=== PATIENT | female | born 1960 | race Caucasian/White ===

== ENCOUNTER 2019-12-20 11:55 | Outpatient (CLI) | payer OTHER, SELFPAY ==
--- NOTE | ~2019-12-20 | XR_ITS ---
EXAMINATION: XR chest 2V EXAM DATE: 12/20/2019 12:31 INDICATION: Cough. TECHNIQUE: Frontal and lateral projections of the chest obtained and reviewed. There is no prior janet dy for comparison. FINDINGS: The lungs are clear. There are no pleural effusions. The cardiomediastinal silhouette is within normal limits. There is no pneumothorax suspected. The bones and soft tissues are unremarkab le. IMPRESSION: Unremarkable chest x-ray exam. Reviewed, dictated and finalized at location A. BLISHMENT GUIDE
--- NOTE | ~2019-12-20 | XR_ITS ---
XR hip BI 2V w AP pelvis DATE: 12/20/2019 12:31 INDICATION: Hip pain TECHNIQUE: AP pelvis. Bilateral AP and lateral views. COMPARISON: None FINDINGS: There is moderately severe right hip osteoarthritis. No fracture or dislocation, avascular necrosis or bone destruction. The sacroiliac joints are intact. IMPRESSION: Right hip osteoarthritis Reviewed, dictated and finalized at location B. UNTANT MANAGER IMPRESSION: Right hip osteoarthritis
== END 2019-12-20 11:56 | disposition home or self-care (01) ==
PROVIDERS: PCP Family Medicine; Visit Provider Family Medicine
DX: R05 Cough (principal); M16.11 Unilateral primary osteoarthritis, right hip
CPT/HCPCS: 71046; 73521

== ENCOUNTER 2020-03-26 07:33 | Outpatient (CLI) | payer OTHER, SELFPAY ==
--- NOTE | 2020-03-26 | ECG_ITS ---
Measurements Intervals [place] Rate: 84 P: 65 FL: 158 QRS: 40 QRSD: 97 T: 58 QT: 388 QTc: 460 Interpretive Statements SINUS RHYTHM ATRIAL PREMATURE COMPLEX POSSIBLE LEFT ATRIAL ENLARGEMENT CANNOT RULE OUT SEPTAL INFARCT, AGE INDETERMINATE BORDERLINE ST ABNORMALITY- ANTEROLAT/INF LEADS BASELINE ARTIFACT- I, II, AVR ABNORMAL ECG Electronically Signed On 03-26-2020 8:31:41 CDT by Skyler Castano D.O.
[2020-03-26 07:55] LABS: Hemoglobin 14.2 g/dL (12.0-15.0)
[2020-03-26 08:04] LABS: Urine Cotinine NEGATIVE
[2020-03-26 08:06] LABS: Albumin Level 4.9 g/dL (3.5-5.1); Estimated Glomerular Filt Rate > 60; Glucose 86 mg/dL (65-105)
== END 2020-03-26 07:34 | disposition home or self-care (01) ==
PROVIDERS: PCP Family Medicine; Visit Provider Orthopaedic Surgery
DX: Z01.812 Encounter for preprocedural laboratory examination (principal); M16.11 Unilateral primary osteoarthritis, right hip; E78.5 Hyperlipidemia, unspecified; Z87.891 Personal history of nicotine dependence; R94.31 Abnormal electrocardiogram [ECG] [EKG]
CPT/HCPCS: 36415; 80307; 82040; 82565; 82947; 85014; 85018; 93005

== ENCOUNTER 2020-04-03 10:00 | Outpatient (CLI) | payer OTHER, SELFPAY ==
[2020-04-03 13:19] LABS: Basophils Absolute Auto 0.1 K/mm3 (0.0-0.1); Basophils Percent Auto 0.8 % (0.2-1.2); Eosinophils Absolute Auto 0.2 K/mm3 (0-0.3); Eosinophils Percent Auto 2.3 % (0-4.4); Hemoglobin 14.3 g/dL (12.0-15.0); Immature Granulocyte Absolute 0.02 K/mm3 (0.00-0.031); Immature Granulocyte Percent A 0.2 % (0-0.5); Lymphocytes Absolute Auto 2.62 K/mm3 (0.9-3.2); Lymphocytes Percent Auto 28.6 % (18.3-44.2); Mean Corpuscular HGB Conc 32.5 g/dl (32-36); Mean Corpuscular Hemoglobin 29.7 pg (26-34); Mean Corpuscular Volume 91.5 fl (80-100); Monocytes Absolute Auto 0.6 K/mm3 (0.1-0.6); Monocytes Percent Auto 6.9 % (2.6-8.5); Neutrophils Absolute Auto 5.6 K/mm3 (1.3-6.7); Neutrophils Percent Auto 61.2 % (45.5-73.1); Platelet Count Result 317 k/mm3 (150-375); Red Blood Count 4.81 M/mm3 (4.2-5.4); Red Cell Distribution Width 14.3 % (11.5-14.5); White Blood Count 9.2 K/mm3 (4.5-10.0)
[2020-04-03 13:27] LABS: Hemoglobin A1C 5.9 % (<5.7)
== END 2020-04-03 10:01 | disposition home or self-care (01) ==
LOC: ANHSURGERY 10:03
PROVIDERS: PCP Family Medicine; Visit Provider Orthopaedic Surgery
DX: Z01.818 Encounter for other preprocedural examination (principal); M16.11 Unilateral primary osteoarthritis, right hip
CPT/HCPCS: 36415; 83036; 85025; 87081

== ENCOUNTER 2020-04-11 10:18 | Outpatient (CLI) | payer OTHER, SELFPAY ==
--- NOTE | 2020-04-11 | EST_ITS ---
Patient Info Name: Mae Bravo Age: 59 years : 1960 Gender: Female Ht: 65 in Wt: 150 lbs BSA: 1.78 m2 Exam Date: 04/11/2020 11:14 AM Exam Location: [facility] Stress Patient Status: Outpatient Admit Date: 04/11/2020 Staff Ordering Physician: Mesha Johnson MD Attending Provider: Mesha Johnson MD Exercise Technologist: Tila Goodwin RDCS Exercise Physician: Skyler Castano DO Exam Type: CA stress kimber w NM Study Info Indications R94.31 - Abnormal electrocardiogram ECG EKG A regadenoson stress test was performed. Summary 1. 1. Negative lexiscan stress for ischemic ST changes by ECG criteria. 2. 2. Baseline hypertension. 3. 3. Nuclear scan to follow and will be reported separately. Please correlate with it. 4. 4. Patient informed of the above results. Protocol: Lexiscan Stress ECG Details Stage: REST Duration (min): 4 min : 9 sec HR (bpm): 78 SBP (mmHg): 145 DBP (mmHg): 89 Stage: REST Duration (min): 11 min : 41 sec HR (bpm): 72 SBP (mmHg): 145 DBP (mmHg): 89 Stage: STAGE 1 Duration (min): 1 min : 0 sec HR (bpm): 100 SBP (mmHg): 139 DBP (mmHg): 98 Stage: RECOVERY Duration (min): 1 min : 0 sec HR (bpm): 98 SBP (mmHg): 143 DBP (mmHg): 94 Stage: RECOVERY Duration (min): 2 min : 0 sec HR (bpm): 92 SBP (mmHg): 143 DBP (mmHg): 94 Stage: RECOVERY Duration (min): 3 min : 0 sec HR (bpm): 94 SBP (mmHg): 146 DBP (mmHg): 76 Stage: RECOVERY Duration (min): 3 min : 4 sec HR (bpm): 93 SBP (mmHg): 146 DBP (mmHg): 76 Rest HR: 72 bpm Peak HR: 102 bpm Rest Sys BP: 145 mmHg Peak Sys BP: 146 mmHg Max Pred HR: 160 bpm % Max Pred HR: 64 % Target HR: 136 bpm Max RPP: 14,892 bpm*mmHg Termination Reason: Completed protocol Cardiac Symptoms: Shortness of breath Total Time: 1 min : 0 sec Rest Sellers BP: 89 mmHg Peak Sellers BP: 76 mmHg Total Dose: 0.4 mg Resting ECG Sinus rhythm with ST depression 1 mm in diffuse leads. Stress ECG No significant ST changes. Arrhythmias None. Report Signatures
--- NOTE | ~2020-04-11 | NM_ITS ---
EXAMINATION: NM kimber stress w perfusion DATE: 04/11/2020 12:26 INDICATION: Abnormal EKG. TECHNIQUE: Rest images were obtained following intravenous administration of 8.8 mCi Tc99m tetrofosmi n (Myoview). The patient was infused intravenously with Lexiscan (Regadenoson). Then, 27.5 mCi Tc99m tetrofosmin (Myoview) was administered intravenously, and stress images were obtained. Data was recon structed into short axis and horizontal and vertical long axis SPECT images. Gated SPECT images were also obtained. COMPARISON: None. FINDINGS: There is no definite reversible or fixed perfusion abnormality to suggest ischemia or infar ction. There is normal left ventricular chamber size, wall motion and ejection fraction. Left ventr icular ejection fraction measures 66%. IMPRESSION: 1. Normal myocardial perfusion at rest and during stress. 2. Left ventricular ejection fraction measuring 66%. Reviewed, dictated and finalized at location A.
== END 2020-04-11 10:19 | disposition home or self-care (01) ==
LOC: ANHCARD 10:24
PROVIDERS: PCP Family Medicine; Visit Provider Family Medicine
DX: R94.31 Abnormal electrocardiogram [ECG] [EKG] (principal); I10 Essential (primary) hypertension
CPT/HCPCS: 78452; 93017; A9502; J2785

== ENCOUNTER 2020-04-22 00:17 | Outpatient (CLI) | payer OTHER, SELFPAY ==
[2020-04-22 18:56] LABS: SARS-CoV-2 RNA PCR Negative
== END 2020-04-22 00:18 | disposition home or self-care (01) ==
LOC: ANHCOVIDDT 00:17
PROVIDERS: PCP Family Medicine; Visit Provider Orthopaedic Surgery
DX: Z01.818 Encounter for other preprocedural examination (principal); Z11.59 Encounter for screening for other viral diseases
CPT/HCPCS: 87635; C9803; U0003

== ENCOUNTER 2020-04-24 01:30 | Day surgery (SDC) | payer OTHER, SELFPAY ==
[2020-04-03 10:15] VITALS: BP 140/84; PULSE 82; RESP 18; TEMP 36.8; O2SAT 97; BMI 26.3
--- NOTE | 2020-04-23 13:14 | WPDANESEPPF ---
Anes - Initial Pre Proc Eval Procedure: Operation Date: 04/24/20 07:30 Proposed Procedures p Right Total Hip Arthroplasty - Justus Byers MD Date/Time: 04/23/20 13:14 Surgeon: Justus Byers MD Pre Op Diagnosis: right hip OA Patient Data Age: 59 Gender: F Height: 1.63 m Weight: 69.6 kg Last Vital Signs Temp 36.8 C 04/03/20 10:15 Pulse 82 04/03/20 10:15 Resp 18 04/03/20 10:15 BP 140/84 04/03/20 10:15 Pulse Ox 97 04/03/20 10:15 Allergies Allergy/AdvReac Type Severity Reaction Status Date / Time No Known Allergies Allergy Verified 04/24/20 06:01 Home Medications Medication Instructions Recorded Confirmed Type estradiol 0.01 % VAGINAL WEEKLY 02/18/20 04/24/20 History meloxicam 7.5 mg tablet 7.5 mg PO DAILY #90 tablet 02/18/20 04/24/20 Rx azithromycin [Azasite] 1 drp OPHTHALMIC (EYE) BID 04/03/20 04/24/20 History carboxymethylcellulose sodium 1 drp OPHTHALMIC (EYE) BID 04/03/20 04/24/20 History [Lubricant Eye Drops] hypochlorous acid-sodium chlor 1 spray TOPICAL BID 04/03/20 04/17/20 History [Avenova] omega 8-lov-ege-fish oil [Fish Oil] 1 cap PO DAILY 04/03/20 04/24/20 History ECG: Date of Service: 03/26/20 Procedure(s): CA 12 lead EKG Accession Number(s): [id number] cc: ~ Measurements Intervals [place] Rate: 84 P: 65 VA: 158 QRS: 40 QRSD: 97 T: 58 QT: 388 QTc: 460 Interpretive Statements SINUS RHYTHM ATRIAL PREMATURE COMPLEX POSSIBLE LEFT ATRIAL ENLARGEMENT CANNOT RULE OUT SEPTAL INFARCT, AGE INDETERMINATE BORDERLINE ST ABNORMALITY- ANTEROLAT/INF LEADS BASELINE ARTIFACT- I, II, AVR ABNORMAL ECG Electronically Signed On 03-26-2020 8:31:41 CDT by Skyler Castano D.O. Dictated By: Skyler Castano DO 03/26/20 0820 Other Studies: Date of Service: 04/11/20 Procedure(s): CA stress kimber w NM Summary 1. 1. Negative lexiscan stress for ischemic ST changes by ECG criteria. 2. 2. Baseline hypertension. IMPRESSION: 1. Normal myocardial perfusion at rest and during stress. 2. Left ventricular ejection fraction measuring 66%. Patient hx anesthesia problems: none Family hx anesthesia problems: none [facility] Past Medical History Medical History (Updated 04/23/20 @ 13:16 by Domo Ott MD) Acute right hip pain Arthritis Former smoker HLD (hyperlipidemia) Overweight (BMI 25.0-29.9) Primary osteoarthritis of right hip Surgical History Surgical History H/O excision of ganglion cyst (~07/2019) History of cataract surgery (~08/2019) History of section (~1979) Social History Social History Smoking packs per day: 0.5 Smoking cigarettes per day: 10.0 Years smoked: 40 Smoking pack-years: 20.00 Smoking status: Current every day smoker Alcohol intake: current Substance use: never 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 Gender identity (if verbalized by the patient): Female Spiritual care concerns: No Agree to blood products: Yes Anes - Eval Final PreProcedure Day of Procedure 04/23/20 13:14 Patient weight: overweight Heart: regular rate and rhythm Lungs: clear to auscultation and normal air movement Airway: Mallampati scale class II Neurological: alert and oriented Last oral intake: >/= 8 hours ASA classification: II Emergent: no Anesthetic plan: proceed Anesthesia type and monitoring: general LMA and ETT Informed Consent: The patient's anesthetic plan and its attendant risks and benefits were discussed with the patient/family/POA. Questions were solicited and answers provided to
[2020-04-24] VITALS (14 sets, daily range): BP systolic 104–145; BP diastolic 58–85; PULSE 79–106; RESP 10–20; TEMP 35.4–37.1; O2SAT 94–100
--- NOTE | ~2020-04-24 | XR_ITS ---
EXAMINATION: XR hip RT min 2V DATE: 04/24/2020 09:58 INDICATION: Postoperative evaluation following right hip hemiarthroplasty. TECHNIQUE: Anteroposterior and lateral views of the right hip were obtained. COMPARISON: Radiograph dated 03/12/2020 FINDINGS: Interval placement of a bipolar type right hip hemiarthroplasty which appears well seated in near nader tomic alignment. No fracture identified. Expected small amount of postoperative soft tissue gas. IMPRESSION: 1. Expected appearance of a bipolar type right hip hemiarthroplasty, negative for postoperative purpo ses. Reviewed, dictated and finalized at location A. IMPRESSION: 1. Expected appearance of a bipolar type right hip hemiarthroplasty, negative f or postoperative purposes.
[2020-04-24] MEDS: LACTATED RINGERS 1,000 ML 30 ML IV CONT ×2 (06:30→09:38)
--- NOTE | 2020-04-24 07:09 | SUR.PREOP ---
Up to bathroom.
--- NOTE | 2020-04-24 07:13 | WPDHPUPDATE1 ---
History and Physical Update Update Date/Time: 04/24/20 07:13 History and Physical has been reviewed, including an updated exam of the patient. There are NO changes in the patient's condition. Risks, benefits, and alternatives have been discussed and questions answered. Patient agrees to proceed with procedure.
[2020-04-24] MEDS: ceFAZolin 2 GM/D5W 50 ML 2 GM/50 ML BAG IVPB (07:21)
[2020-04-24] MEDS: TRANEXAMIC ACID 1,000MG/ISO100 1,000 MG/100 ML BAG 200 MG IVPB (07:46)
--- NOTE | 2020-04-24 10:06 | SUR.PHASEI ---
0945 xrays right hip done.
--- NOTE | 2020-04-24 10:17 | P.OP_ITS ---
Procedure Note - Detailed Date of procedure: 04/24/20 Pre-op diagnosis: right hip OA Post-op diagnosis: same Procedure performed: Total hip arthroplasty. Implants: The Accolade II hip stem, 127 degree size 2 , was utilized with excellent press-fit. The 46 mm ADM acetabular component was impacted with excellent press-fit stability. The +0 , 28 mm Biolox ceramic femoral head was utilized. Anesthesia: GLMA Surgeon: Justus Byers MD Drains: No Complications: None Condition: stable Findings: OPERATIVE DETAILS: The patient was given preoperative antibiotics. A general anesthetic was administered. The patient was carefully placed in the l ateral decubitus position on the PEG board. The shoulders and hips were carefully positioned for component and leg length positioning reference. The hip was prepped and draped in the usual sterile fashion. A longitudinal incision was created over the posterior aspect of the greater trochanter. Careful dissection was brought down through the deep fascia with electrocautery. A minimally invasive optimized posterior approach to the hip was performed. The short external rotators and capsule were taken down in an L-shaped capsulotomy. The tissue was tagged for later repair using number 2 high strength suture. The femoral neck was measured and taken in situ. The femoral head was removed. The acetabulum was carefully exposed. The inferior capsule was released. The labrum was resected. The acetabulum was sequentially reamed to one over the intended cup size. The cup was impacted into position with excellent press-fit. Typical anatomic landmarks, including the bony contact points as well as the inferior transverse acetabular ligament were used to confirm cup positioning with preoperative templating. Attention was turned to the femur, which was carefully exposed. The hip was reamed and then broached sequentially. Excellent press-fit was obtained with the broach. The hip was trialed. Measurements were utilized, including the lesser trochanter as well as the center of the femoral head and the tip of the trochanter, and excellent assessment of the offset and leg lengths were confirmed. The real component was impacted into position. Trialing confirmed appropriate leg length and offset with soft tissue balancing as well apparent feel of the leg, both at the knee and the heel. Soft tissues were assessed using the the iliotibial band. Reduction of the posterior capsule and external rotators were also used as a secondary assessment. The hip was copiously irrigated with pulsatile lavage antibiotic solution periodically throughout the procedure. The real components were then assembled and reduced. The hip was stable throughout typical maneuvers, including extension, external rotation to 70 degrees, the position of sleep as well as flexion to 90 degrees with internal rotation past 45 degrees. The shake test confirmed stability without impingement. Osteophytes were removed as necessary. The short external rotators and capsule were repaired back to the posterior trochanter through drill holes. The deep fascia was repaired with running number 2 Quill suture, followed by 0 Stratafix suture and 2-0 Stratafix suture in the dermis. Steri- Strips were placed on the skin, followed by a sterile silver occlusive dressing. There were no complications. Meticulous hemostasis was maintained with the AquaMantys device. The patient was brought to the recovery room in stable condition. There were no complications.
--- NOTE | 2020-04-24 11:00 | PC.NURSE ---
This patient, Mae Bravo, was admitted to Medical Room 248-. Patient/family oriented to hospital policies and general routines including ID bracelet, bed and alarms, visiting hours, pain management, procedures, bathroom and other care routines, personal items, smoking policy, room service/diet, and visiting hours. Valuables list has been completed. Information on how to activate the Rapid Response Team has been discussed. Patient/Family are encouraged to report perceived risks to care and to ask questions if they do not understand what they are told or what they should do.
[2020-04-24] MEDS: SODIUM CHLORIDE 0.9% IV 1,000 ML 125 ML IV CONT (11:19)
[2020-04-24 11:21] LABS: Hematocrit 39.4 % (37.0-47.0); Hemoglobin 12.9 g/dL (12.0-15.0)
[2020-04-24] MEDS: DIAZEPAM 5 MG TABLET PO (14:32)
[2020-04-24] MEDS: DOCUSATE SODIUM 100 MG CAPSULE PO (16:26)
[2020-04-24] MEDS: ASPIRIN 81 MG ENTERIC TABLET PO (16:26)
--- NOTE | 2020-04-24 16:38 | PM.PNORT ---
Progress Note: A&P Additional Plan Brief postop check. Doing well. Pain well controlled. Dressing intact. No hematoma or drainage. Calf soft. Wiggles toes. Anterior tibialis strength normal. Alert and oriented x3. No cough or shortness of breath. Physical therapy tomorrow. Possible discharge home. Subjective Subjective Date/Time Seen: 04/24/20 16:38 Objective Data Vital Signs Vital Signs: Vital Signs - 24 hr 04/24/20 06:59 04/24/20 09:38 04/24/20 09:50 Temperature 37.1 C 36.4 C Pulse Rate 83 103 H 95 Respiratory Rate 16 17 12 Blood Pressure 121/69 125/71 141/77 H Pulse Oximetry 99 97 99 04/24/20 10:05 04/24/20 10:20 04/24/20 10:35 Temperature Pulse Rate 96 98 94 Respiratory Rate 12 10 L 11 L Blood Pressure 127/81 137/85 126/71 Pulse Oximetry 100 95 100 04/24/20 10:50 04/24/20 11:05 04/24/20 11:20 Temperature 35.4 C L 35.6 C L Pulse Rate 93 96 96 Respiratory Rate 12 16 16 Blood Pressure 122/81 145/77 H 136/77 Pulse Oximetry 99 98 94 04/24/20 11:50 04/24/20 12:50 Temperature 36.1 C L 35.8 C L Pulse Rate 97 106 H Respiratory Rate 18 16 Blood Pressure 135/79 112/58 L Pulse Oximetry 98 97 Intake/Output Intake/Output: Intake & Output 04/21/20 04/22/20 04/23/20 04/24/20 23:59 23:59 23:59 23:59 Intake Total 1202 Balance 1202 Meds/Results Medications: Active Medications Generic Name Dose Route Start Last Admin Trade Name Freq PRN Reason Stop Dose Admin Aspirin 81 mg 04/24/20 17:00 04/24/20 16:26 Aspirin Ec PO 81 mg BID DORA Administration Diazepam 5 mg 04/24/20 10:54 04/24/20 14:32 Valium Po PO 5 mg Q6H PRN Administration Anxiety/Muscle Spasm Docusate Sodium 100 mg 04/24/20 17:00 04/24/20 16:26 Colace Capsule PO 100 mg BID DORA Administration Estradiol 1 applic 05/01/20 09:00 Estrace Vaginal Cream VAGINAL WEEKLY [facility] Acetaminophen 1,000 mg in 100 mls @ 400 mls/hr 04/24/20 12:00 04/24/20 13:13 Ofirmev 1,000 Mg Ivpb IVPB 04/25/20 12:01 Not Given Q6HR [facility] Cefazolin Sodium 1 gm in 50 mls @ 100 mls/hr 04/24/20 14:00 04/24/20 13:44 Ancef 1 Gm/D5w 50 Ml Pm IVPB 04/25/20 06:29 Infused Q8H [facility] Infusion Magnesium Hydroxide 30 ml 04/24/20 10:54 Milk Of Magnesia PO BID PRN Constipation Meloxicam 7.5 mg 04/25/20 09:00 Mobic PO DAILY [facility] Naloxone HCl 0.1 mg 04/24/20 10:54 Narcan IV PUSH Q2M PRN Opiate Reversal Non-Formulary Medication 1 drop 04/24/20 17:00 Azithromycin [Azasite] EACH EYE 05/24/20 17:01 BID [facility] Non-Formulary Medication 1 drop 04/24/20 17:00 Carboxymethylcellulose Sodium [Lubricant Eye Drops] EACH EYE 05/24/20 17:01 BID [facility] Non-Formulary Medication 1 spray 04/24/20 17:00 Hypochlorous Acid-Sodium Chlor [Avenova] TOPICAL 05/24/20 17:01 BID [facility] Ondansetron HCl 4 mg 04/24/20 10:54 Zofran Inj IV PUSH Q4H PRN Nausea And Vomiting Oxycodone HCl 5 mg 04/24/20 10:54 04/24/20 12:28 Roxicodone Ir Tablet PO 5 mg Q4H PRN Administration Pain Rated 4-6 Radiology Results: ITS Impressions Hip X-Ray 04/24/20 10:21 IMPRESSION: 1. Expected appearance of a bipolar type right hip hemiarthroplasty, negative for postoperative purposes. Labs Labs: Laboratory Results - last 24 hr 04/24/20 04/24/20 06:38 11:13 Hgb 12.9 Hct 39.4 Blood Type O Positive Antibody Screen Negative
[2020-04-25 02:00] VITALS: BP 118/61; PULSE 80; RESP 20; TEMP 36.5; O2SAT 98
[2020-04-25 05:39] LABS: Basophils Percent Auto 0.3 % (0.2-1.2); Eosinophils Absolute Auto 0.1 K/mm3 (0-0.3); Hemoglobin 11.5 g/dL (12.0-15.0); Immature Granulocyte Absolute 0.04 K/mm3 (0.00-0.031); Immature Granulocyte Percent A 0.3 % (0-0.5); Lymphocytes Percent Auto 23.3 % (18.3-44.2); Mean Corpuscular HGB Conc 31.9 g/dl (32-36); Mean Corpuscular Hemoglobin 29.7 pg (26-34); Monocytes Absolute Auto 1.1 K/mm3 (0.1-0.6); Monocytes Percent Auto 8.1 % (2.6-8.5); Neutrophils Absolute Auto 8.6 K/mm3 (1.3-6.7); Platelet Count Result 248 k/mm3 (150-375); Red Blood Count 3.87 M/mm3 (4.2-5.4); Red Cell Distribution Width 13.7 % (11.5-14.5); White Blood Count 12.9 K/mm3 (4.5-10.0)
[2020-04-25 06:00] VITALS: BP 127/66; PULSE 89; RESP 20; TEMP 37.2; O2SAT 99
[2020-04-25 06:14] LABS: Blood Urea Nitrogen 13 mg/dL (7-17); Calcium 8.7 mg/dL (8.4-10.2); Carbon Dioxide 29 mmol/L (22-30); Chloride 105 mmol/L (98-107); Estimated CRCL calculation 86 ml/min; Estimated Glomerular Filt Rate > 60; Glucose 103 mg/dL (65-105); Potassium 3.8 mmol/L (3.4-5.0); Sodium 137 mmol/L (137-145)
--- NOTE | 2020-04-25 08:38 | WPDANESPN ---
Anes - Prog Note Post-Op Date/Time: 04/25/20 08:38 Cardiovascular status: normal Respiratory status: normal Airway patency: baseline Mental status: baseline Post-Op hydration status: normal Vital Signs: Last Vital Signs Temp 98.9 F 04/25/20 06:00 Pulse 89 04/25/20 06:00 Resp 20 04/25/20 06:00 BP 127/66 04/25/20 06:00 Pulse Ox 99 04/25/20 06:00 I/O: Intake & Output 04/24/20 04/25/20 04/25/20 23:59 07:59 15:59 Intake Total 790 950 Output Total 800 1000 Balance -10 -50 Laboratory Tests 04/25/20 05:05 04/25/20 05:05 04/24/20 04/25/20 04/25/20 11:13 05:05 05:05 WBC 12.9 H RBC 3.87 L Hgb 12.9 11.5 L Hct 39.4 36.0 L MCV 93.0 MCH 29.7 MCHC 31.9 L RDW 13.7 Plt Count 248 MPV 11.0 H Immature Gran % (Auto) 0.3 Neut % (Auto) 67.0 Lymph % (Auto) 23.3 [place] % (Auto) 8.1 Eos % (Auto) 1.0 Baso % (Auto) 0.3 Lymph # (Auto) 3.00 [place] # (Auto) 1.1 H Eos # (Auto) 0.1 Baso # (Auto) 0.0 Abs Immat Gran (auto) 0.04 H Absolute Neuts (auto) 8.6 H Absolute Nucleated RBC 0.0 Nucleated RBC % 0.0 Sodium 137 Potassium 3.8 Chloride 105 Carbon Dioxide 29 BUN 13 Creatinine 0.50 L Estim Creat Clear Calc 86 Estimated GFR > 60 Glucose 103 Calcium 8.7 Post-procedural complaints: none Patient Feedback: Patient satisfied with anesthetic care.
[2020-04-25] MEDS: DOCUSATE SODIUM 100 MG CAPSULE PO (09:22)
[2020-04-25] MEDS: MELOXICAM 7.5 MG TABLET PO (09:22)
[2020-04-25] MEDS: ASPIRIN 81 MG ENTERIC TABLET PO (09:22)
[2020-04-25 10:00] VITALS: BP 109/54; PULSE 84; RESP 16; TEMP 36.9; O2SAT 95
== END 2020-04-25 14:20 | disposition home or self-care (01) ==
LOC: ANHSURGERY 05:45 → ANH2MED 10:56
PROVIDERS: PCP Family Medicine; Visit Provider Orthopaedic Surgery
PROC: (CPT 27130; principal; 2020-04-24 07:30)
DX: M16.11 Unilateral primary osteoarthritis, right hip (principal); M25.751 Osteophyte, right hip; E78.5 Hyperlipidemia, unspecified; E66.3 Overweight; Z68.26 Body mass index [BMI] 26.0-26.9, adult; F17.210 Nicotine dependence, cigarettes, uncomplicated; Z79.899 Other long term (current) drug therapy
CPT/HCPCS: 27130; 36415; 73502; 80048; 85014; 85018; 85025; 86850; 86900; 86901; 97110; 97116; 97161; 97165; 97530; A9270; C1776; J0131; J0171; J0690; J1100; J1170; J1885; J2250; J2270; J2405; J2704; J2795; J3010; J7030; J7120

== ENCOUNTER 2023-07-29 16:40 | Emergency (ER) | payer OTHER, SELFPAY ==
--- NOTE | 2023-07-29 16:43 | ED.SKABFB ---
HPI - Skin/Abscess/Foreign Bdy General Chief complaint: Skin/Abscess/Foreign Body Stated complaint: Rash Time Seen by Provider: 07/29/23 16:42 Source: patient Mode of arrival: ambulatory Limitations: no limitations History of Present Illness HPI narrative: Mae is a 62-year-old female patient presenting to the clinic today with complaints of a rash to her face and to the tops of her shoulders. She reports no new detergents, soaps, shampoos, foods, or medications. Reports that she has been getting recurrent poison morro. Was seen last month at her doctor's office for this and he gave her a Depo-Medrol shot at that time. She reports that the rash is itchy in nature. Denies any pain. No fever or chills. Related Data Home Medications Medication Instructions Recorded Confirmed omega 0-waw-exq-fish oil 1,000 mg 1 cap PO DAILY 04/03/20 06/25/23 (120 mg-180 mg) capsule (Fish Oil) meloxicam 15 mg tablet 15 mg PO DAILY 06/01/23 07/29/23 Allergies Allergy/AdvReac Type Severity Reaction Status Date / Time No Known Allergies Allergy Verified 06/24/23 07:58 Review of Systems Review of Systems: Pertinent positives per HPI. Patient denies any fever, chills, headache, visual changes, dizziness, cough, runny nose, sore throat, shortness of breath, chest pain, palpitations, nausea, vomiting, diarrhea, constipation, abdominal pain, or any urinary issues. [facility] Past Medical History Medical History Arthritis Cyst of left breast (~07/2020) Following with Dr Worthy - Repeat diagnostic mammo and target U/S 01/2021. Former smoker HLD (hyperlipidemia) Overweight (BMI 25.0-29.9) Prediabetes Primary osteoarthritis of right hip Surgical History Surgical History H/O excision of ganglion cyst (~07/2019) History of cataract surgery (~08/2019) History of section (~1979) History of right hip replacement (~03/2020) Family History Family History Father Acute myocardial infarction Family history of heart disease in male family member before age 55 Sibling Family history of diabetes mellitus in first degree relative Other Heart disease Other Cerebrovascular accident Diabetes mellitus Family history of Alzheimer's disease Social History Social History Smoking packs per day: 0.5 Smoking cigarettes per day: 10.0 Years smoked: 40 Smoking pack-years: 20.00 Smoking status: Current every day smoker Tobacco type: cigarettes Smoking end date: 03/24/20 Alcohol intake: current Alcohol use details: once a month Substance use: current Substance use type: marijuana Last use: 04/21/2020 Lack of Transportation: No Lack of Food: Never True Current Housing: I Have Housing Concerned About Future Housing: No Difficulty Paying Gas/Electric Bills: No Difficulty Paying for Meds: No Currently Unemployed: No Education: High School Diploma/GED Difficulty w/ Childcare or Family Care: No Occupation/Education: retired 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 There is no relevant family history pertinent to the patient complaint. Exam Narrative: General: Well-developed, well nourished, in no apparent distress Head: Normocephalic, atraumatic. Cardio: Regular rate and rhythm, s1 and s2 normal, no murmur appreciated. Resp: Clear to auscultation bilaterally, no rhonchi, rales, wheezing or rubs. Integumentary: [place], warm, and dry, intact without lesion, red raised itchy rash to the e
[2023-07-29 16:48] VITALS: BP 143/75; PULSE 97; RESP 16; TEMP 36.3; O2SAT 96
== END 2023-07-29 17:01 | disposition home or self-care (01) ==
PROVIDERS: Emergency Provider Nurse Practitioner Family; PCP Physician Assistant
DX: L30.9 Dermatitis, unspecified (principal); E78.5 Hyperlipidemia, unspecified; F17.210 Nicotine dependence, cigarettes, uncomplicated; Z79.1 Long term (current) use of non-steroidal anti-inflammatories (NSAID)
CPT/HCPCS: 99213; G0463